=== PATIENT | female | born 1975 | race Two or more races ===

== ENCOUNTER 2018-05-19 14:46 | Emergency (ER) | payer OTHER ==
[~2018-05-19] VITALS: Ht 154.9 cm; Wt 59.0 kg
[2018-05-19] MEDS ORDERED: SYNTHROID50 MCG (15:20)
[2018-05-19] MEDS ORDERED: ELITE-OB 400 C1 EACH (15:21)
== END 2018-05-19 18:13 | disposition home or self-care (01) ==
LOC: ER 14:46
DX: O20.0 Threatened abortion (principal); Z34.81 Encounter for supervision of other normal pregnancy, first trimester

== ENCOUNTER 2018-06-06 08:57 | Day surgery (SDC) | payer OTHER ==
[~2018-06-06 08:57] MED LIST: ELITE-OB 400 C1 EACH; SYNTHROID50 MCG
[2018-06-06] MEDS ORDERED: DOXYCYCLINE HY100 MG PO (11:58)
[2018-06-06] MEDS ORDERED: CODE1TAB37 PO (11:58)
== END 2018-06-06 14:15 | disposition home or self-care (01) ==
LOC: CIR.AMB 08:57
DX: O02.1 Missed abortion (principal); Z3A.08 8 weeks gestation of pregnancy